=== PATIENT | female | born 1970 | race Caucasian/White ===

== ENCOUNTER 2018-04-08 20:09 | Emergency (ER) | payer OTHER ==
[~2018-04-08 20:09] MED LIST: CYCL10TA29 PO; DIPH0.5D12 IM; MELO-205 PO; MUPI15CR2 TP
--- NOTE | 2018-04-08 20:31 | ER Report ---
History and Physical Time Seen By MD: 20:30 HPI/ROS CHIEF COMPLAINT: Dizziness, nausea HISTORY OF PRESENT ILLNESS: Patient is a 47-year-old female here with complaints of dizziness, vertiginous symptoms started several days ago and had been persistent. Patient reports worsening with movement of her head. She has not had similar symptoms before. Patient denies trauma or taking Blood thinners. Patient denies fevers, neck pain, blurred vision, chest pain, shortness of breath. REVIEW OF SYSTEMS: Constitutional: No fever, no chills. Eyes: No discharge. ENT: No sore throat. Cardiovascular: No chest pain, no palpitations. Respiratory: No cough, no shortness of breath. Gastrointestinal: No abdominal pain, + vomiting, + nausea Genitourinary: No hematuria. Musculoskeletal: No back pain. Skin: No rashes. Neurological: No headache. Allergies: Coded Allergies: adhesive (Verified Allergy, Unknown, 04/08/18) Home Meds Active Scripts Diazepam (DIAZEPAM) 5 Mg Tablet, 5 MG PO Q8H, #15 TAB Prov:CARSON MARTINEZ DO 04/08/18 Hx Smoking: No Smoking Status: Never Smoker Hx Substance Use Disorder: No Hx Alcohol Use: Yes (SOCIAL) Constitutional Vital Sign - Last 24 Hours 04/08/18 04/08/18 04/08/18 04/08/18 20:35 20:39 21:09 21:39 Temp 98.3 Pulse 85 53 55 Resp 16 B/P (MAP) 142/81 (101) 142/81 Pulse Ox 100 95 93 04/08/18 04/08/18 04/08/18 04/08/18 21:44 22:29 22:44 22:59 Pulse 52 53 57 57 Pulse Ox 93 98 98 98 04/08/18 04/08/18 04/08/18 23:19 23:24 23:39 Pulse 115 111 ??? Pulse Ox 93 99 Physical Exam General Appearance: The patient is alert, has no immediate need for airway protection and no signs of toxicity. NAD Eyes: Pupils equal and round no pallor or injection, + horizontal nystagmus bi directional ENT, Mouth: Mucous membranes are moist. Respiratory: There are no retractions, lungs are clear to auscultation. Cardiovascular: Regular rate and rhythm. Gastrointestinal: Abdomen is soft and non tender, no masses, bowel sounds normal. Neurological: No focal neuro deficits Skin: Warm and dry, no rashes. Musculoskeletal: Neck is supple non tender. Extremities are nontender, nonswollen and have full range of motion. DIFFERENTIAL DIAGNOSIS: After history and physical exam differential diagnosis was considered for peripheral versus central vertigo, trauma, intracranial hemorrhage, arrhythmia, electrolyte abnormality. Medical Decision Making Data Points Result Diagram: 04/08/18212904/08/182129 Laboratory Hematology Test 04/08/18 21:30 04/08/18 23:04 Red Blood Count 4.20 M/uL (4.17-5.56) Mean Corpuscular Volume 91.1 fL (80.0-96.0) Mean Corpuscular Hemoglobin 31.4 pg (26.0-33.0) Mean Corpuscular Hemoglobin Concent 34.5 g/dL (32.0-36.0) Red Cell Distribution Width 14.0 % (11.5-14.5) Mean Platelet Volume 8.9 fL (7.2-11.1) Neutrophils (%) (Auto) 46.8 % (39.4-72.5) Lymphocytes (%) (Auto) 44.4 % (17.6-49.6) Monocytes (%) (Auto) 6.3 % (4.1-12.4) Eosinophils (%) (Auto) 1.8 % (0.4-6.7) Basophils (%) (Auto) 0.7 % (0.3-1.4) Nucleated RBC Relative Count (auto) 0.0 /100WBC Neutrophils # (Auto) 2.9 K/uL (2.0-7.4) Lymphocytes # (Auto) 2.8 K/uL (1.3-3.6) Monocytes # (Auto) 0.4 K/uL (0.3-1.0) Eosinophils # (Auto) 0.1 K/uL (0.0-0.5) Basophils # (Auto) 0.0 K/uL (0.0-0.1) Nucleated RBC Absolute Count (auto) 0.00 K/uL Sodium Level 141 mmol/L (137-145) Potassium Level 3.6 mmol/L (3.5-5.0) Chloride Level 105 mmol/L (98-107) Carbon Dioxide Level 26 mmol/L (22-31) Blood Urea Nitrogen 13 mg/dl (7-18) Creatinine 0.80 mg/dl (0.52-1.04) Glomerular Filtration Rate Calc > 60.0 Random Glucose 85 mg/dl (75-110) Calcium Level 8.9 mg/dl (8.4-10.2) Magnesium Level 2.2 mg/dl (1.7-2.2) Total Bilirubin 0.3 mg/dl (0.2-1.3) Aspartate Amino Transf (AST/SGOT) 19 U/L (0-35) Alanine Aminotransferase (ALT/SGPT) 22 U/L (0-56) Alkaline Phosphatase 49 U/L (0-126) Total Protein 7.1 g/dl (6.3-8.2) Albumin 3.8 g/dl (3.5-5.0) Human Chorionic Gonadotropin, Qual Negative (NEGATIVE) Urine Color Straw Urine Clarity Clear Urine pH 6.0 pH (4.8-9.5) Urine Specific [place] 1.009 Urine Protein Negative mg/dL (NEGATIVE) Urine Glucose (UA) Negative mg/dL (NEGATIVE) Urine Ketones Negative mg/dL (NEGATIVE) Urine Blood Negative (NEGATIVE) Urine Nitrite Negative (NEGATIVE) Urine Bilirubin Negative (NEGATIVE) Urine Urobilinogen Negative mg/dL (0.2-1.9) Urine Leukocyte Esterase Negative (NEGATIVE) Urine RBC None /HPF (0-2/HPF) Urine WBC 2 /HPF (0-5/HPF) Urine Squamous Epithelial Cells Many /LPF (</=FEW) Urine Bacteria Few /HPF (NONE-FEW) Urine Mucus None /HPF (NONE-FEW) Chemistry Test 04/08/18 21:30 04/08/18 23:04 White Blood Count 6.2 k/uL (4.5-11.0) Red Blood Count 4.20 M/uL (4.17-5.56) Hemoglobin 13.2 g/dL (12.0-16.0) Hematocrit 38.3 % (34.0-47.0) Mean Corpuscular Volume 91.1 fL (80.0-96.0) Mean Corpuscular Hemoglobin 31.4 pg (26.0-33.0) Mean Corpuscular Hemoglobin Concent 34.5 g/dL (32.0-36.0) Red Cell Distribution Width 14.0 % (11.5-14.5) Platelet Count 255 K/uL (150-450) Mean Platelet Volume 8.9 fL (7.2-11.1) Neutrophils (%) (Auto) 46.8 % (39.4-72.5) Lymphocytes (%) (Auto) 44.4 % (17.6-49.6) Monocytes (%) (Auto) 6.3 % (4.1-12.4) Eosinophils (%) (Auto) 1.8 % (0.4-6.7) Basophils (%) (Auto) 0.7 % (0.3-1.4) Nucleated RBC Relative Count (auto) 0.0 /100WBC Neutrophils # (Auto) 2.9 K/uL (2.0-7.4) Lymphocytes # (Auto) 2.8 K/uL (1.3-3.6) Monocytes # (Auto) 0.4 K/uL (0.3-1.0) Eosinophils # (Auto) 0.1 K/uL (0.0-0.5) Basophils # (Auto) 0.0 K/uL (0.0-0.1) Nucleated RBC Absolute Count (auto) 0.00 K/uL Glomerular Filtration Rate Calc > 60.0 Calcium Level 8.9 mg/dl (8.4-10.2) Magnesium Level 2.2 mg/dl (1.7-2.2) Total Bilirubin 0.3 mg/dl (0.2-1.3) Aspartate Amino Transf (AST/SGOT) 19 U/L (0-35) Alanine Aminotransferase (ALT/SGPT) 22 U/L (0-56) Alkaline Phosphatase 49 U/L (0-126) Total Protein 7.1 g/dl (6.3-8.2) Albumin 3.8 g/dl (3.5-5.0) Human Chorionic Gonadotropin, Qual Negative (NEGATIVE) Urine Color Straw Urine Clarity Clear Urine pH 6.0 pH (4.8-9.5) Urine Specific [place] 1.009 Urine Protein Negative mg/dL (NEGATIVE) Urine Glucose (UA) Negative mg/dL (NEGATIVE) Urine Ketones Negative mg/dL (NEGATIVE) Urine Blood Negative (NEGATIVE) Urine Nitrite Negative (NEGATIVE) Urine Bilirubin Negative (NEGATIVE) Urine Urobilinogen Negative mg/dL (0.2-1.9) Urine Leukocyte Esterase Negative (NEGATIVE) Urine RBC None /HPF (0-2/HPF) Urine WBC 2 /HPF (0-5/HPF) Urine Squamous Epithelial Cells Many /LPF (</=FEW) Urine Bacteria Few /HPF (NONE-FEW) Urine Mucus None /HPF (NONE-FEW) Urinalysis Test 04/08/18 23:04 Urine Color Straw Urine Clarity Clear Urine pH 6.0 pH (4.8-9.5) Urine Specific [place] 1.009 Urine Protein Negative mg/dL (NEGATIVE) Urine Glucose (UA) Negative mg/dL (NEGATIVE) Urine Ketones Negative mg/dL (NEGATIVE) Urine Blood Negative (NEGATIVE) Urine Nitrite Negative (NEGATIVE) Urine Bilirubin Negative (NEGATIVE) Urine Urobilinogen Negative mg/dL (0.2-1.9) Urine Leukocyte Esterase Negative (NEGATIVE) Urine RBC None /HPF (0-2/HPF) Urine WBC 2 /HPF (0-5/HPF) Urine Squamous Epithelial Cells Many /LPF (</=FEW) Urine Bacteria Few /HPF (NONE-FEW) Urine Mucus None /HPF (NONE-FEW) EKG/Imaging EKG Interpretation Test Reason : Blood Pressure : / mmHG Vent. Rate : 052 BPM Atrial Rate : 052 BPM P-R Int : 166 ms QRS Dur : 084 ms QT Int : 412 ms P-R-T Axes : 037 032 036 degrees QTc Int : 383 ms Sinus bradycardia Otherwise normal ECG No previous ECGs available Confirmed by SARAY JACK ([id number]) on 04/09/2018 6:24:52 AM Monitor Interpretation: Sinus Bradycardia Imaging HEAD W/O CONTRAST HISTORY: Dizziness. Headache. COMPARISON STUDIES: None TECHNIQUE: Contiguous axial images were obtained from the skull base to the vertex. One of the following dose optimization techniques was utilized in the performance of this exam: automated exposure control; adjustment of the mA and/ or kv according to patient size; or use of iterative reconstruction technique. Specific details can be referenced in the facility's radiology CT exam operational policy. FINDINGS: Hemorrhage: Negative Ventricles / sulci / fissures: Negative Masses / midline shift: Negative White matter: Negative Santiago-white differentiation: Negative Vessels: Negative Extra-axial spaces: Negative Bones/skull base: Negative Visualized mastoid air cells / paranasal sinuses: Negative Scalp and soft tissues: Negative. Other findings: None significant IMPRESSION: 1. Normal head CT CHEST PA AND LAT HISTORY: dizziness COMPARISON: None FINDINGS: Cardiomediastinal contours: Normal Lungs and pleura: Normal Bones/soft tissues: Normal Other findings: None significant IMPRESSION: 1. Normal chest ED Course/Re-evaluation ED Course Patient is a 47-year-old female here with complaints of dizziness, nausea for the past.several days. Patient reports that this is the 1st episode of these symptoms. She does have fatigable horizontal nystagmus on visual exam making peripheral vertigo more likely. She also describes exacerbation of her symptoms with movement of her head which also more likely peripheral vertigo. Urinalysis , CBC, CMP and beta hCG were within normal limits. CT scan of the head was performed due to the patient's symptoms and the fact that this is her 1st episode of vertigo. CT imaging of the head was unremarkable. EKG showed no ischemic changes. Patient received fluid bolus, Valium with moderate relief of symptoms. Patient was given a prescription for diazepam. Symptomatic relief and was advised to follow-up with her PCP. Patient voiced understanding and was stable at time of discharge. Decision to Disposition Date: Apr 08, 2018 Decision to Disposition Time: 23:45 Depart Departure Latest Vital Signs Vital Signs Date Time Temp Pulse Resp B/P (MAP) Pulse Ox O2 Delivery O2 Flow Rate FiO2 04/08/18 23:39 ??? 99 04/08/18 20:39 98.3 16 142/81 Impression: Primary Impression: Vertigo Condition: Improved Disposition: HOME OR SELF-CARE Referrals: DAXA KUMARI MD (PCP) New Scripts Diazepam (DIAZEPAM) 5 Mg Tablet 5 MG PO Q8H, #15 TAB Prov: CARSON MARTINEZ DO 04/08/18 Patient Instructions: Diazepam (By mouth), Vertigo (ED) Additional Instructions: You may take 1 tablet of diazepam every 8 hours as needed for dizziness and vertigo. CT imaging of the head and chest x-ray showed no acute findings. EKG showed no arrhythmias. Labs were unremarkable. Please return promptly if you develop worsening symptoms, symptoms fail to improve, he developed fevers, chest pain, neck pain. CARSON MARTINEZ DO Apr 08, 2018 20:31
[2018-04-08 20:39] VITALS: BP 142/81
[2018-04-08] MEDS ORDERED: NS(*) 0.9% 1000 ML BAG 1,000 ML IV ONE (20:52)
[2018-04-08] MEDS ORDERED: DIAZEPAM 50 MG/10 ML MDV IVP ONE (20:55)
--- NOTE | 2018-04-08 21:12 | EKG ---
FACILITY: [facility] PATIENT NAME: ELDER RO : [id number] MR: [id number] V: [id number] EXAM DATE: ORDERING PHYSICIAN: CARSON MARTINEZ TECHNOLOGIST: Test Reason : Blood Pressure : / mmHG Vent. Rate : 052 BPM Atrial Rate : 052 BPM P-R Int : 166 ms QRS Dur : 084 ms QT Int : 412 ms P-R-T Axes : 037 032 036 degrees QTc Int : 383 ms Sinus bradycardia Otherwise normal ECG No previous ECGs available Confirmed by SARAY JACK ([id number]) on 04/09/2018 6:24:52 AM Referred By: Confirmed By:SARAY JACK
[2018-04-08 21:46] LABS: PLATELET COUNT, AUTOMATED 255 K/uL (150-450)
--- NOTE | 2018-04-08 22:36 | RADIOLOGY IMAGING REPORT ---
[place] [facility] [place] Rom Mejia : 1970 MR: [id number] V: [id number] EXAM DATE: ORDERING PHYSICIAN: CARSON MARTINEZ TECHNOLOGIST: [place] [facility] [place] Mejia : 1970 Visit/Account:[id number] Date of Sevice: 04/08/2018 CHEST PA AND LAT HISTORY: dizziness COMPARISON: None FINDINGS: Cardiomediastinal contours: Normal Lungs and pleura: Normal Bones/soft tissues: Normal Other findings: None significant IMPRESSION: 1. Normal chest Report Dictated By: Adalid Harris MD at 04/08/2018 10:32 PM Report E-Signed By: Adalid Harris MD at 04/08/2018 10:32 PM WSN:[id number]
--- NOTE | 2018-04-08 22:37 | RADIOLOGY IMAGING REPORT ---
[place] [facility] [place] NAME: Rom Mejia : 1970 MR: [id number] V: [id number] EXAM DATE: ORDERING PHYSICIAN: CARSON MARTINEZ TECHNOLOGIST: Location: [facility] Patient: Rom Mejia : 1970 Visit/Account:[id number] Date of Sevice: 04/08/2018 HEAD W/O CONTRAST HISTORY: Dizziness. Headache. COMPARISON STUDIES: None TECHNIQUE: Contiguous axial images were obtained from the skull base to the vertex. One of the [employer] dose optimization techniques was utilized in the performance of this exam: automated exposure co ntrol; adjustment of the mA and/or kv according to patient size; or use of iterative reconstruction t echnique. Specific details can be referenced in the facility's radiology CT exam operational policy. FINDINGS: Hemorrhage: Negative Ventricles / sulci / fissures: Negative Masses / midline shift: Negative White matter: Negative Santiago-white differentiation: Negative Vessels: Negative Extra-axial spaces: Negative Bones/skull base: Negative Visualized mastoid air cells / paranasal sinuses: Negative Scalp and soft tissues: Negative. Other findings: None significant IMPRESSION: 1. Normal head CT Report Dictated By: Adalid Harris MD at 04/08/2018 10:32 PM Report E-Signed By: Adalid Harris MD at 04/08/2018 10:34 PM WSN:[id number]
[2018-04-08] MEDS ORDERED: DIAZ-308 PO (23:00)
== END 2018-04-08 23:47 | disposition home or self-care (01) ==
LOC: ER 20:37
DX: R42 Dizziness and giddiness (principal)
CPT/HCPCS: 70450; 71046; 81001; 83735; 84703; 85025; 93005; 96361; 96374; 99284; J3360; J7030; 82040; 82247; 82310; 82374; 82435; 82565; 82947; 84075; 84132; 84155; 84295; 84450; 84460; 84520